=== PATIENT | male | born 1955 | race Caucasian/White ===

== ENCOUNTER 2018-09-02 21:12 | Emergency (ER) | payer MEDICAID ==
[2018-09-02] MEDS: MECLIZINE 12.5 MG TAB PO (22:45)
[2018-09-02] MEDS: SOD CHLORIDE 0.9% 500 ML IV (22:46)
[2018-09-02] MEDS: LORAZEPAM 2 MG INJ IV (22:46)
== END 2018-09-03 02:07 | disposition home or self-care (01) ==
LOC: E/R 09-03 02:07
DX: H81.392 Other peripheral vertigo, left ear (principal); R40.2142 Coma scale, eyes open, spontaneous, at arrival to emergency department; R40.2362 Coma scale, best motor response, obeys commands, at arrival to emergency department; R40.2252 Coma scale, best verbal response, oriented, at arrival to emergency department; I10 Essential (primary) hypertension; F17.210 Nicotine dependence, cigarettes, uncomplicated
CPT/HCPCS: 70450; 96374; 99285-25